=== PATIENT | female | born 1995 | race Caucasian/White ===

== ENCOUNTER 2019-07-21 18:32 | Emergency (ER) | payer BC, SELFPAY ==
[2019-07-21 18:40] VITALS: BP 115/76; PULSE 122; RESP 18; TEMP 38.4; O2SAT 97
[2019-07-21 19:36] LABS: Influenza A and B by PCR Rapid Negative (Negative)
[2019-07-21 19:44] LABS: Strep Grp A by PCR Rapid Negative
--- NOTE | 2019-07-21 21:47 | ED_ITS ---
HPI - Fever General Chief Complaint: Fever Stated Complaint: THROAT SWELLING FEVER Time Seen by Provider: 07/21/19 20:47 Source: patient Mode of arrival: Ambulatory Limitations: no limitations History of Present Illness HPI Narrative: 24-year-old female daily smoker with benign medical history presents with her significant other and a chief complaint of a day's worth of fever, rapidly worsening sore throat with difficulty swallowing. She denies runny nose, cough, ear pain, chest pain or other bothersome symptoms. She is not dizzy nor weak or lightheaded MD complaint: fever Onset (ago): hour(s) Maximum Temperature: 103 F Temperature Source: oral Associated symptoms: sore throat Relieving factors: nothing Exacerbating factors: swallowing Treatments prior to arrival fever: acetaminophen and ibuprofen Related Data Previous Rx's Medication Instructions Recorded ketorolac 10 mg PO Q6H PRN #14 tab 07/21/19 ondansetron 4 mg PO TID-QID PRN #10 tab 07/21/19 Allergies Allergy/AdvReac Type Severity Reaction Status Date / Time No Known Drug Allergies Allergy Verified 07/21/19 23:18 Review of Systems Constitutional Constitutional: Reports chills, Reports fatigue, Reports fever(s), Denies frequent falls, Denies lethargy and Denies weakness Eyes Eyes: Denies change in vision, Denies eye discharge, Denies irritation and Denies loss of vision ENT Ears, Nose, Mouth, and Throat: Denies change in voice, Denies dizziness, Denies neck pain, Reports sore throat and Denies throat swelling Cardiovascular Cardiovascular: Denies chest pain, Denies irregular heart rhythm, Denies lightheadedness, Denies palpitations, Denies dyspnea, Denies dyspnea on exertion and Denies orthopnea Respiratory Respiratory: Denies cough, Denies dyspnea, Denies dyspnea on exertion and Denies wheezing Gastrointestinal Gastrointestinal: Denies abdominal pain, Denies change in bowel habits, Denies diarrhea, Denies nausea and Denies vomiting Genitourinary Genitourinary: Denies hematuria, Denies flank pain, Denies urinary incontinence and Denies urinary urgency Musculoskeletal Musculoskeletal: Denies back pain, Denies muscle weakness, Denies neck pain, Denies numbness and Denies tingling Integumentary/Breasts Skin/Breast: Denies pruritus, Denies erythema, Denies rash and Denies wounds Neurologic Neurologic: Denies behavioral changes, Denies confusion, Denies dizziness, Denies frequent falls, Denies loss of vision, Denies numbness, Denies tingling and Denies weakness Psychiatric Psychiatric: Denies anxiety, Denies behavioral changes, Denies confusion, Denies depression, Denies homicidal ideation and Denies suicidal ideation Endocrine Endocrine: Reports fatigue, Denies flushing and Denies palpitations Hematologic/Lymphatic Hematologic/Lymphatic: Denies easy bruising Allergic/Immunologic Allergic/Immunologic: Denies urticaria, Denies throat swelling and Denies wheezing Patient History Social History Smoking Status: Current every day smoker Substance Use Type: marijuana Exam Narrative Exam Narrative: GENERAL: [24] year old patient appears stated age. Well- nourished, well-developed patient, in mild distress. Clearly not feeling well HEAD: Atraumatic. Normocephalic. EYES: Pupils equal round and reactive. Extraocular motions intact. No scleral icterus. No injection or drainage. ENT: Nose without bleeding, purulent drainage. Posterior pharyngeal erythema with some soft palate petechiae but no tonsillar hypertrophy or exudate. Uvula is midline without any pointing, fullness or other to suggest retropharyngeal abscess or peritonsillar abscess Airway patent. NECK: Trachea midline. Non tender no cervical lymphadenopathy CARDIOVASCULAR: Tachycardic but regular rhythm without murmurs, gallops, or rubs. RESPIRATORY: Clear to auscultation. Breath sounds equal bilaterally. No wheezes, rales, or rhonchi. GASTROINTESTINAL: Abdomen soft, non-tender, nondistended. EXTREMITIES: No edema or joint tenderness. BACK: Nontender without deformity or crepitance. No flank tenderness. NEURO: AOx3. SKIN: No rash or erythema of visible areas Initial Vital Signs Initial Vital Signs: Vital Signs Temperature 101.2 F H 07/21/19 18:40 Pulse Rate 122 H 07/21/19 18:40 Respiratory Rate 18 07/21/19 18:40 Blood Pressure 115/76 07/21/19 18:40 Pulse Oximetry 97 07/21/19 18:40 Course Orders Ordered: ED Orders 07/21/19 18:34 Influenza A and B by PCR Rapid Stat Strep Grp A by PCR Rapid Stat 07/21/19 22:18 Throat Culture Stat Discontinued Medications Dexamethasone (Decadron) 10 mg IV NOW ONE Stop: 07/21/19 22:07 Last Admin: 07/21/19 22:22 Dose: 10 mg Documented by: YULY Sodium Chloride (Normal Saline 0.9%) 1,000 mls @ 1,000 mls/hr IV BOLUS ONE Stop: 07/21/19 23:05 Last Infusion: 07/21/19 23:31 Dose: 0 mls/hr Documented by: Admin: 07/21/19 22:22 Dose: 1,000 mls/hr Documented by: YULY Ketorolac Tromethamine (Toradol) 15 mg IV NOW ONE Stop: 07/21/19 22:07 Last Admin: 07/21/19 22:22 Dose: 15 mg Documented by: YULY Penicillin G Benzathine (Bicillin L-A) 1,200,000 unit IM NOW ONE Stop: 07/21/19 22:08 Last Admin: 07/21/19 22:22 Dose: 1,200,000 unit Documented by: YULY Reevaluation(s) Reevaluation #1: Patient feeling much better after the above-stated therapies. Vital Signs Vital signs: Vital Signs - 8 hr 07/21/19 23:31 Temperature 100.3 F H Pulse Rate 113 H Respiratory Rate 15 Pulse Oximetry 98 MDM - Fever Lab Data Labs: Lab Results 07/21/19 Range/Units 18:34 Influenza A & B (PCR) Negative (Negative) Group A Strep (PCR) Negative MDM Narrative Medical decision making narrative: 24-year-old female smoker with fever, sore throat feeling unwell. Rapid strep was negative, however we have had multiple the negative rapid strep slightly with subsequent culture demonstrating other type of strep. For this reason patient treated for strep, throat culture obtained. She is not septic, tolerating orals in shows tremendous improvement. She has been given return precautions and the sec questions answered to her apparent satisfaction. Discharge Plan Departure Patient Disposition: Home Clinical Impression: Pharyngitis Qualifiers: Pharyngitis/tonsillitis etiology: unspecified etiology Qualified Code(s): J02.9 - Acute pharyngitis, unspecified Discharge Date/Time: 07/21/19 23:46 Activity Restrictions/Additional Instructions: *You have been diagnosed with [acute pharyngitis, likely non strep a, we will await cultures] *What to do: *Take medications as directed *Follow up with your primary care provider in 2-3 days, call for an appointment. Let them know you were seen in the Emergency Department and that we ask that you be seen in follow up *Return to ER if you should have any new, worsening or concerning symptoms Prescriptions: New ketorolac 10 mg tablet 10 mg PO Q6H PRN (Reason: pain) Qty: 14 RF: 0 ondansetron 4 mg tablet,disintegrating 4 mg PO TID-QID PRN (Reason: nausea and vomiting) Qty: 10 RF: 0
[2019-07-21] MEDS: KETOROLAC 60 MG/2 ML VIAL 15 MG IV (22:22)
[2019-07-21] MEDS: PENICILLIN G BENZATHINE 1,200,000 UNIT/2 ML SYRINGE 1200000 UNIT IM (22:22)
[2019-07-21] MEDS: SODIUM CHLORIDE 0.9% 1,000 ML 1000 ML IV (22:22)
[2019-07-21] MEDS: DEXAMETHASONE 10 MG/ML VIAL IV (22:22)
[2019-07-21 23:31] VITALS: PULSE 113; RESP 15; TEMP 37.9; O2SAT 98
== END 2019-07-21 23:46 | disposition home or self-care (01) ==
PROVIDERS: Emergency Provider Emergency Medicine
DX: J02.9 Acute pharyngitis, unspecified (principal)
CPT/HCPCS: 36415; 87070; 87502; 87651; 96372; 96374; 96375; 99283; 99284; J0561; J1100; J1885

== ENCOUNTER → 2020-12-11 17:40 | Outpatient (CLI) | payer BC, SELFPAY | PROVIDERS: Visit Provider Physician Assistant | DX: J02.9 Acute pharyngitis, unspecified (principal) | CPT/HCPCS: 87070; 87077; 87147 ==